=== PATIENT | male | born 1980 | race Caucasian/White ===

== ENCOUNTER 2019-07-12 22:15 | Emergency (ER) | payer BC ==
--- NOTE | 2019-07-12 22:29 | ED ---
Back Pain - HPI Summary HPI Summary: 39-year-old male with no significant past medical history presents to emergency department today with chief complaint of low back pain which began 2 hours ago while stacking firewood. He states in the past he's had mechanical back pain which is made better with chiropractic adjustment and stretching and he has a history of "tweaking my back". He states his pain as a 2 out of 10 at rest following a 10 out of 10 with movement which he describes as stabbing and achy. He is not taking anything for pain prior to arrival. He states his pain is so bad he is unable to ambulate. Patient denies fever, history of trauma, chest pain, abdominal pain, shortness of breath, and urination, saddle paresthesia, numbness or tingling in the legs. - History of Current Complaint Chief Complaint: EDBackInjuryPain Stated Complaint: BACK PAIN PER EMS Time Seen by Provider: 07/12/19 22:28 Hx Obtained From: Patient Onset/Duration: Sudden Onset Onset/Duration: Started Hours Ago Timing: Constant Severity Initially: Severe Severity Currently: Severe Pain Intensity: 9 Pain Scale Used: 0-10 Numeric Character: Sharp, Aching Aggravating Symptom(s): Movement, Lifting, Bending, Walking, Cough Alleviating Symptom(s): Rest Associated Signs And Symptoms: Positive: Pain with Weight Bearing. Negative: Swelling, Redness, Bruising, Fever, Tingling, Abdominal Pain, Bladder Incontinence, Bowel Incontinence Related History: Similar Episode Dx As - Mechanical back pain in the past - Allergies/Home Medications Allergies/Adverse Reactions: Allergies Allergy/AdvReac Type Severity Reaction Status Date / Time No Known Allergies Allergy Verified 08/18/16 13:36 PMH/Surg Hx/FS Hx/Imm Hx Endocrine/Hematology History: Denies: Hx Anticoagulant Therapy, Hx Diabetes, Hx Thyroid Disease Cardiovascular History: Denies: Hx Congestive Heart Failure, Hx Deep Vein Thrombosis, Hx Hypertension , Hx Myocardial Infarction, Hx Pacemaker/ICD Respiratory History: Reports: Hx Asthma - As child Denies: Hx Chronic Obstructive Pulmonary Disease (COPD), Hx Lung Cancer, Hx Pneumonia, Hx Pulmonary Embolism GI History: Denies: Hx Gall Bladder Disease, Hx Gastrointestinal Bleed, Hx Ulcer, Hx Urosepsis History: Denies: Hx Kidney Stones, Hx Renal Disease Neurological History: Denies: Hx Dementia, Hx Migraine, Hx Seizures, Hx Transient Ischemic Attacks (TIA) Psychiatric History: Denies: Hx Anxiety, Hx Depression, Hx Schizophrenia, Hx Bipolar Disorder - Surgical History Surgery Procedure, Year, and Place: wisdom teeth Infectious Disease History: No Infectious Disease History: Denies: Hx Clostridium Difficile, Hx Hepatitis, Hx Human Immunodeficiency Virus (HIV), Hx of Known/Suspected MRSA, Hx Shingles, Hx Tuberculosis, Hx Known/ Suspected VRE, Hx Known/Suspected VRSA, History Other Infectious Disease, Traveled Outside the [place] in Last 30 Days - Family History Known Family History: Positive: Cardiac Disease, Diabetes - father Negative: Hypertension - Social History Alcohol Use: Rare Substance Use Type: Reports: None Smoking Status (MU): Never Smoked Tobacco Type: Smokeless Tobacco Review of Systems Constitutional: Negative Cardiovascular: Negative Respiratory: Negative Gastrointestinal: Negative Positive: Arthralgia, Decreased ROM - at lumbar spine Skin: Negative Neurological: Negative Psychological: Normal All Other Systems Reviewed And Are Negative: Yes Physical Exam Triage Information Reviewed: Yes Vital Signs On Initial Exam: Initial Vitals Temp Pulse Resp BP Pulse Ox 98.8 F 104 22 185/110 97 07/12/19 22:20 07/12/19 22:20 07/12/19 22:20 07/12/19 22:20 07/12/19 22:20 Vital Signs Reviewed: Yes Appearance: Positive: Well-Appearing, Well-Nourished, Pain Distress Skin: Positive: Warm, Skin Color Reflects Adequate Perfusion Head/Face: Positive: Normal Head/Face Inspection Eyes: Positive: EOMI, RENEE ENT: Positive: Hearing grossly normal Respiratory/Lung Sounds: Positive: Clear to Auscultation, Breath Sounds Present Cardiovascular: Positive: RRR, S1, S2 Abdomen Description: Positive: Nontender Bowel Sounds: Positive: Present Musculoskeletal: Positive: Pain @ - Right lumbar paraspinal muscles. Pain is worse with movement however not much pain can be elicited with palpation., Other - No evidence of gross deformity, ecchymosis, edema, erythema the lumbar spine. Patient complains mainly of pain to the right lateral aspect of the lumbar spine. Straight leg raise elicits lumbar spine pain. There is no evidence of muscle fasciculation or edema with physical exam. No midline tenderness with palpation suggestive of fracture. No radiculopathy, sensation is intact throughout the dermatomes of the lower extremity. Neurological: Positive: Sensory/Motor Intact, Alert, Oriented to Person Place, Time, Ataxic Gait - Significantly ataxic gait patient is struggling to ambulate. Negative: Normal Gait Psychiatric: Positive: Normal AVPU Assessment: Alert Procedures - Sedation Patient Received Moderate/Deep Sedation with Procedure: No Diagnostics - Vital Signs Vital Signs Temp Pulse Resp BP Pulse Ox 07/12/19 22:20 98.8 F 104 22 185/110 97 - Laboratory Lab Statement: Any lab studies that have been ordered have been reviewed, and results considered in the medical decision making process. Back Pain Course/Dx - Course Course Of Treatment: Patient was evaluated in the emergency department today for chief complaint of low back pain. The patient was seen and evaluated. Toradol IM and by mouth Valium was ordered for relief of the patient's symptoms as he was in exquisite pain and unable to get comfortable. After administraton of these medications he had significant decrease in pain and was able to ambulate using a crutch. He had no evidence of severe acute pathology such as spinal fracture, cauda equina syndrome, epidural abscess, herniated disc. This pain appeared to be mechanical back pain, as such, a short supply of valium was prescribed for relief of his symptoms until he can see his primary care provider for further evaluation and management. He was told to return to activity as tolerated. He was given a note to be off work next 2 days in order to recover. The patient was told to return to the emergency department if he developed any new or worsening symptoms. Patient agreed to this plan. - Diagnoses Differential Diagnosis/HQI/PQRI: Positive: Cauda Equina Syndrome, Compressive Cord Syndrome, Epidural Abscess, Herniated Disc, Strain, Sprain Provider Diagnoses: Lumbar strain Discharge ED - Sign-Out/Discharge Documenting (check all that apply): Patient Departure - Discharge Plan Condition: Improved Disposition: HOME Prescriptions: Diazepam TAB(*) [Valium TAB(*)] 10 mg PO Q8H PRN #12 tab MDD 3 tab PRN Reason: Pain - Moderate Patient Education Materials: Low Back Strain (ED) Forms: *Work Release Referrals: Armando Enrique NP [Primary Care Provider] - Additional Instructions: You were seen in the emergency department today due to low back pain. It is likely your back pain is due to lumbar muscle strain, your symptoms will disappear on their own in time. Please follow up with your primary care physician in one to 2 days for further evaluation and management of your symptoms. I have sent pain medication to your pharmacy which you may take for alleviation of pain. Other than this you may take ibuprofen 600 mg every 6 hours as needed for 1 week. You may also use hot packs to improve your symptoms. If you develops any new or worsening symptoms please return to the emergency Department immediately. - Billing Disposition and Condition Condition: IMPROVED Disposition: Home
[2019-07-12] MEDS ORDERED: Ketorolac INJ* 30 MG/ML 1 ML VIAL IM ONE (22:43)
[2019-07-12] MEDS ORDERED: Diazepam TAB(*) 5 MG PO ONE (22:43)
[2019-07-13 00:08] VITALS: BP 149/88
== END 2019-07-13 00:06 | disposition home or self-care (01) ==
LOC: ED 22:15
DX: S39.012A Strain of muscle, fascia and tendon of lower back, initial encounter (principal); M54.9 Dorsalgia, unspecified; X50.9XXA Other and unspecified overexertion or strenuous movements or postures, initial encounter; Y92.9 Unspecified place or not applicable
CPT/HCPCS: 96372; 99282; A9270-GY; J1885